=== PATIENT | female | born 1990 | race Two or more races ===

== ENCOUNTER 2018-10-31 11:21 | Emergency (ER) | payer MEDICAID ==
[~2018-10-31] VITALS: Ht 167.6 cm; Wt 82.0 kg
[2018-10-31 15:28] VITALS: BP 149/94
== END 2018-10-31 15:29 | disposition home or self-care (01) ==
LOC: ER 11:21
DX: R05 Cough (principal)
CPT/HCPCS: 71045; 99283

== ENCOUNTER 2019-01-28 12:53 | Emergency (ER) | payer MEDICAID ==
[~2019-01-28] VITALS: Ht 167.6 cm; Wt 87.0 kg
[2019-01-28 13:30] VITALS: BP 95/54
== END 2019-01-28 15:12 | disposition home or self-care (01) ==
LOC: ER 12:53
DX: H92.03 Otalgia, bilateral (principal); R20.2 Paresthesia of skin; M25.551 Pain in right hip; Z98.51 Tubal ligation status
CPT/HCPCS: 99283